=== PATIENT | male | born 1940 | race Caucasian/White ===

== ENCOUNTER 2018-05-16 06:15 | Inpatient (IN) ==
[~2018-05-16 06:15] MED LIST: Vancomycin 1,000 MG, Sodium Chloride IRRigation 1,000 ML IR ONE
[2018-05-16] MEDS ORDERED: CeFAZolin Syr 2,000MG/20 ML 2,000 MG/20 ML SYRINGE IVPB ONE (06:36)
[2018-05-16] MEDS ORDERED: Heparin 1,000 UNITS/500 mL 500 ML ONE (07:00)
--- NOTE | 2018-05-16 07:05 | Anesthesia Evaluation PreOp ---
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 HX Other Medical History: Diabetes Type II, GERD Anesthesia History: No Prior Anesthetic Complications, Past Anesthesia Alcohol Use: none Drug use: none Medications and Allergies Aspirin [Ecotrin] 325 mg PO DAILY 05/16/18 [History] Benazepril HCl 5 mg PO DAILY 05/16/18 [History] Carvedilol [Coreg] 12.5 mg PO BID 05/16/18 [History] Glimepiride [Amaryl] 4 mg PO DAILY 05/16/18 [History] Pioglitazone [Actos] 45 mg PO DAILY 05/16/18 [History] Simvastatin [Zocor] 40 mg PO HS 05/16/18 [History] raNITIdine HCl [Ranitidine HCl] 300 mg PO PRN PRN 05/16/18 [History] 3 Allergy/AdvReac Type Severity Reaction Status Date / Time No Known Allergies Allergy Verified 04/24/18 16:38 - Meds/Allergy Pre-op Review Medications Reviewed: Yes Allergies Reviewed: Yes Beta Blockers on Current Med List: Yes If Beta Blockers taken, Date/Time (Last Dose taken): 05/15/2018 at 0830 Anesthesia Results - Labs Laboratory Tests 05/09/18 05/09/18 05/09/18 08:58 08:58 08:58 WBC 6.4 Hgb 13.7 Hct 41.2 Plt Count 108 L PT 12.2 H INR 1.1 APTT 35.1 Sodium 137 Potassium 4.5 BUN 28 H Creatinine 1.33 H - Imaging Additional studies: 05/07/2018 Stress Impression: Pharmacologic stress ECG is negative for ischemia at level of heart rate achieved. Gated EF = 68%. Small sized, moderate intensity, fixed apical inferior perfusion defect. A small prior infarct cannot be excluded. Perfusion imaging was negative for ischemia. Findings: Stress Note * Resting ECG demonstrated normal sinus rhythm. * No baseline arrhythmias were noted. * Pharmacologic stress ECG is negative for ischemia at level of heart rate achieved. * No arrhythmias were noted during stress. * Patient had no chest pain during stress. Hemodynamic responses * Normal hemodynamic responses to pharmacologic stress. Study Quality * Study quality is average. Gated EF % * Gated EF = 68%. Left Ventricle * The left ventricle is not dilated. LVEDV = 91 mL. Inferior Perfusion Rest * The apical inferior segments show a moderate reduction in perfusion. Inferior Perfusion Stress * The apical inferior segments show a moderate reduction in perfusion. TID * No evidence of transient ischemic dilatation. TID ratio = 1.09. Lung Uptake * There is no evidence of increase lung uptake. Anesthesia Exam O2 Sat Height 1.78 m Height 1.78 m Height 1.78 m Weight 70.307 kg Weight 70.307 kg Weight 70.307 kg O2 Sat by Pulse Oximetry 98 Vital Signs Temp Pulse Resp BP Pulse Ox 97.6 F 51 18 139/74 98 05/16/18 06:33 05/16/18 06:33 05/16/18 06:33 05/16/18 06:33 05/16/18 06:33 Blood Glucose* 126 Height: 5'10" Weight: 155 lbs NPO (# of Hours): 8 Pain Scale: 0 Pain Scale Used: Numeric (1 - 10) - HEENT Pupil (Motor): EOMI Mallampati: II Teeth: Normal, Missing Denture Type: Upper: Complete Oral Opening: Greater than 3 - SHAFT MECHANIC LOC: Oriented SHAFT MECHANIC Motor: Normal RUE, Normal LUE, Normal RLE, Normal LLE, Normal Face SHAFT MECHANIC Sensory: Normal: RUE, LUE, RLE, LLE, Face - Cardiac Rhythm: Regular Murmur: None - Pulmonary Breath Sounds: bilateral Clear Respiratory Effort: Symmetrical Anesthesia Assess/Plan ASA Score: 3 Modified Romie Scale for Level of Consciousness: Cooperative, oriented, and tranquil Anesthetic Plan: General Monitoring Plan: Standard Monitors, A-Line Recovery Plan: PACU
[2018-05-16] MEDS ORDERED: Lidocaine -MPF 2% 2 ML VIAL ONE (07:10)
[2018-05-16] MEDS ORDERED: Dexamethasone 4 MG/ML VIAL ONE (07:10)
[2018-05-16] MEDS ORDERED: *HR* Succinylcholine 200 MG/10 ML VIAL IVP ONE (07:10)
[2018-05-16] MEDS ORDERED: Ondansetron 4 MG/2 ML VIAL ONE (07:10)
[2018-05-16] MEDS ORDERED: Lidocaine -MPF 4% 5 ML AMPUL ONE (07:10)
[2018-05-16] MEDS ORDERED: *HR* FentaNYL (PF) 100 MCG/2 ML VIAL ONE (07:11)
[2018-05-16] MEDS ORDERED: *HR* Propofol 200 MG/20 ML VIAL IVP ONE (07:11)
[2018-05-16] MEDS ORDERED: *HR* Remifentanil 1 MG VIAL IVP ONE (07:16)
[2018-05-16] MEDS ORDERED: Heparin 1,000 UNITS/500 mL 1,500 ML ONE ×2 (07:22→08:02)
[2018-05-16] MEDS ORDERED: Isovue-300 150 ML INFUS..BTL IV ONE (07:23)
--- NOTE | 2018-05-16 07:32 | History & Physical Report ---
Date of Encounter: 05/16/18 Time of Encounter: 07:28 24 Hour HP Update - Instructions Instructions: If the History and Physical is less than 30 days old and was completed prior to A.M. admission and or procedure and has NOT been updated on calendar day of procedure please complete this update prior to performing procedure. - Update Patient reports changes in Medical Condition: No Changes in examination, assessment, or condition: No Changes in Medication: No Preop tests/diagnostics Reviewed: Yes Surgery Remains Indicated: Yes Consent for Planned Operative Procedure(s) Verified: Yes - Pre-Operative Checklist Preoperative Checklist Indicated: Yes Prophylactic Antibiotic Ordered: Yes (Vancomycin due to MRSA risk) Home Medications Include Beta Susan: Yes Beta Susan Taken Today (Day of Surgery): Yes Beta Susan Taken Yesterday (Day Prior to Surgery): Yes Is VTE Prophylaxis Indicated?: Yes
[2018-05-16] MEDS: Ringers Solution, Lactated 1,000 ML IVC SCH ×2 (07:33→09:45)
[2018-05-16] MEDS ORDERED: Vancomycin 1,000 MG VIAL ONE (07:54)
[2018-05-16] MEDS ORDERED: Isovue-300 50 ML VIAL IVP ONE (08:12)
[2018-05-16] MEDS ORDERED: EPHEDrine 50 MG/ML VIAL ONE (08:42)
[2018-05-16] MEDS ORDERED: *HR* Heparin 5,000 UNIT/ML VIAL ONE ×2 (09:20→10:20)
[2018-05-16] MEDS ORDERED: *HR* Meperidine 25 MG/ML SYRINGE IVP PRN (09:55)
[2018-05-16] MEDS ORDERED: Ondansetron 4 MG/2 ML VIAL IVP ONE (09:55)
[2018-05-16] MEDS ORDERED: *HR* Promethazine 25 MG/ML VIAL IVP PRN (09:55)
[2018-05-16] MEDS ORDERED: *HR* OxyCODONE Immed Rel 5 MG TABLET PO PRN (09:55)
[2018-05-16] MEDS ORDERED: *HR* Phenylephrine 10 MG/ML VIAL ONE (10:05)
[2018-05-16] MEDS ORDERED: *HR* PHENYLEPHRINE 1,000 MCG/10 ML SYRINGE IVP ONE (10:05)
[2018-05-16] MEDS ORDERED: Protamine Sulfate 50 MG/5 ML VIAL IVP ONE (10:08)
--- NOTE | 2018-05-16 12:19 | Anesthesia Evaluation Post Op ---
Date of Encounter: 05/16/18 Time of Encounter: 12:18 - Vital Signs Vital Signs: Vital Signs/O2 Sat, Most Current Temp Pulse Resp BP Pulse Ox 97.2 F L 60 15 128/72 100 05/16/18 12:10 05/16/18 12:10 05/16/18 12:10 05/16/18 12:10 05/16/18 12:10 - Lungs Lungs: Clear Ascult./Percussion - Airway Airway: Non-obstructed - Cardiovascular Regular Rate - Mental Status Mental Status: Alert & Oriented, Answers Appropriately - Pain Pain Scale: 2 Pain Scale used: Numeric (1 - 10) - Nausea Vomiting Nausea Vomiting: Not Present - Hydration Hydration: Ice chips, Da Silva catheter - Discharge PostOp Status: Transfer Patient to floor
--- NOTE | 2018-05-16 12:23 | Operative Note ---
Date of procedure: 05/16/18 Pre-op diagnosis: Abdominal Aortic Aneursym Post-op diagnosis: same Procedure: Endograft repair of abdominal aortic aneurysm. Complications: None Anesthesia: GETA Surgeon: Ric Alvarez Was there an assistant food service manager present: No Estimated blood loss (cc): 200 Specimen: None Condition: stable Disposition: PACU
[2018-05-16] MEDS ORDERED: Dextrose Gel 15 GM/37.5 ML TUBE PO PRN ×2 (12:50)
[2018-05-16] MEDS ORDERED: 0.9 % Sodium Chloride 1,000 ML IVC SCH (12:50)
[2018-05-16] MEDS ORDERED: Ondansetron 4 MG/2 ML VIAL IVP PRN (12:50)
[2018-05-16] MEDS ORDERED: D5% in Water 1,000 ML IVC PRN (12:50)
[2018-05-16] MEDS ORDERED: Famotidine 20 MG TABLET PO PRN (12:50)
[2018-05-16] MEDS ORDERED: Naloxone 0.4 MG/ML INJ IVP PRN (12:50)
[2018-05-16] MEDS ORDERED: *HR* Dextrose 50 % in Water (Syg) 50 ML SYRINGE IVP PRN (12:50)
[2018-05-16] MEDS ORDERED: *HR* Labetalol 20 MG/4 ML SYRINGE IVP PRN (12:50)
[2018-05-16] MEDS ORDERED: OXYCODONE Oral CONC 10 MG/0.5 ML ORAL.SYG SL PRN ×2 (12:50)
[2018-05-16] MEDS ORDERED: *HR* HYDROcodone/Acet 5/325 mg TABLET PO PRN (12:50)
[2018-05-16] MEDS ORDERED: Acetaminophen 325 MG TABLET PO PRN (12:50)
[2018-05-16] MEDS: *HR* OxyCODONE Immed Rel 5 MG TABLET PO PRN (13:29)
[2018-05-16] MEDS: Insulin LISPRO 300 UNITS/3 ML VIAL SQ SCH (17:09)
[2018-05-16] MEDS: *HR* Metoprolol 5 MG/5 ML VIAL IVP SCH ×2 (17:10→23:52)
[2018-05-16] MEDS ORDERED: Insulin LISPRO 300 UNITS/3 ML VIAL SQ SCH (21:00)
[2018-05-17 04:43] LABS: Basophils % 0.1 %; Immature Granulocytes % 0.4 % (0-4)
[2018-05-17 04:46] LABS: Hematocrit 32.4 % (37.5-50.1); Hemoglobin 10.9 g/dL (12.9-16.9); Lymphocytes % 27.1 %; Mean Corpuscular HGB Conc 33.6 g/dL (31.6-35.5); Mean Corpuscular Volume 104.2 fL (83.0-100.0); Mean Platelet Volume 10.1 fL (9.4-12.4); Monocytes # 0.9 K/mcL (0.0-1.3); Monocytes % 7.9 %; Neutrophils # 7.1 K/mcL (1.6-8.9); Red Blood Count 3.11 M/mcL (4.19-5.50); Red Cell Distribution Width 13.2 % (11.5-14.5); Segmented Neutrophils % 64.5 %
[2018-05-17 04:50] LABS: Platelet Count 84 K/mcL (140-400)
[2018-05-17 05:13] LABS: BUN/Creatinine Ratio 26 (6-26); Blood Urea Nitrogen 25 mg/dL (8-23); Calcium 8.3 mg/dL (8.6-10.3); Carbon Dioxide 21 mEq/L (23-29); Chloride 109 mEq/L (98-107); Glucose 144 mg/dL (70-105); Osmolality,Calculated 293 (280-300); Potassium 4.3 mEq/L (3.5-5.1); Sodium 138 mEq/L (136-145); eGFR For Non-African Americans > 60 (> 60)
[2018-05-17] MEDS: *HR* Metoprolol 5 MG/5 ML VIAL IVP SCH (05:49)
[2018-05-17] MEDS ORDERED: *HR* Heparin 5,000 UNIT/ML VIAL SQ SCH ×2 (06:00)
--- NOTE | 2018-05-17 06:22 | Discharge Summary ---
Orders not resulted at time of discharge: Pending orders 05/15/18 10:58 Red Blood Cells [BBK] Routine Date of Encounter: 05/17/18 Time of Encounter: 07:35 - Discharge Diagnosis (1) Abdominal aortic aneurysm Priority: Primary Status: Chronic Comments: The patient is postoperative day #1 after endograft repair of an abdominal aortic aneurysm. His wounds are healing. He is alert. He is tolerating a diet. He will be discharged today. 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 transplanted heart: [place] heart Associated angina: without angina Qualified Code(s): I25.10 - Atherosclerotic heart disease of [place] coronary artery without angina pectoris (5) Mixed hyperlipidemia Priority: Secondary Status: Chronic (6) Anemia Priority: Secondary Status: Acute Comments: The patient has acute expected postoperative blood loss anemia. He is hemodynamically stable without evidence of ongoing blood loss. Qualifiers: Anemia type: other cause Other causes of anemia: other cause, not classified Qualified Code(s): D64.89 - Other specified anemias - Hospital Course Hospital course: Mr. Kaur is a 78 year old male with a history of coronary artery disease, diabetes, hypertension and carotid stenosis was found have an abdominal aortic aneurysm. He was admitted on 05/16/2018 where he underwent endograft repair of his abdominal aortic aneurysm. He tolerated the procedure well. On postoperative day #1 he was tolerating a diet. His pain was controlled. He was hemodynamically stable. He was discharged home in stable condition on postoperative day #1 without complication. - Time Spent with Patient Total time spent providing and/or coordinating discharge services: - Discharge Medications Prescriptions: OxyCODONE/APAP 5/325 [Percocet 5/325 MG] 1 each PO Q6HR PRN 5 Days #20 tablet PRN Reason: Postoperative pain Home Medications: Aspirin [Ecotrin] 325 mg PO DAILY 05/16/18 [History] Benazepril HCl 5 mg PO DAILY 05/16/18 [History] Carvedilol [Coreg] 12.5 mg PO BID 05/16/18 [History] Glimepiride [Amaryl] 4 mg PO DAILY 05/16/18 [History] Pioglitazone [Actos] 45 mg PO DAILY 05/16/18 [History] Simvastatin [Zocor] 40 mg PO HS 05/16/18 [History] raNITIdine HCl [Ranitidine HCl] 300 mg PO PRN PRN 05/16/18 [History] OxyCODONE/APAP 5/325 [Percocet 5/325 MG] 1 each PO Q6HR PRN 5 Days #20 tablet [Rx] Allergies/Adverse Reactions: 3 Allergy/AdvReac Type Severity Reaction Status Date / Time No Known Allergies Allergy Verified 04/24/18 16:38 Date of admission: 05/16/18 12:26 Primary care physician: Yovanny Daniel MD Procedure(s) Performed: Endograft repair of abdominal aortic aneurysm. Discharging clinician: Ric Alvarez Anticipated date of discharge: 05/17/18 Exam Vital Signs, Last 4 Hours Temp Pulse Resp BP Pulse Ox 05/17/18 03:33 97.7 F 68 16 115/65 96 General: Present: Conversant, No Apparent Distress HEENT: Present: Pupils equal Cardiac: Present: Reg Rate and Rhythm Lungs: Present: Normal Breath Sounds Neuro: Present: Alert and responsive, No focal deficits noted Abdomen: Present: Soft, Non-tender Vascular: Present: Normal capillary refill, Pulse, normal, Surgical incisions ( Incisions clean and dry and intact without erythema or drainage, no hematoma). Absent: Edema Skin: Present: No rashes noted on visualized skin - Patient Status Disposition: Home, Self-Care Condition: Good Functional capacity at discharge: independent ambulation Overall status at discharge: patient is back to baseline - Discharge Instructions Instructions: Oxycodone/Acetaminophen (By mouth), Abdominal Aortic Aneurysm (DC ), Endovascular Abdominal Aortic Aneurysm Repair (DC) Follow Up With: Ric Alvarez MD [Partnered Physician] - 06/25/18 1:10 pm Yovanny Daniel MD [Primary Care Provider] - 05/23/18 11:30 am Additional Instructions: May remove bandages and shower on 05/18/2018. Wash wounds gently and pat to dry. Applied dry gauze to wounds daily for 7 days. No tub baths or swimming until 06/20/2018. Call Dr. Alvarez at [phone] with questions or concerns. - Diet and Activity Activity: increase activity as tolerated Diet: advance to your usual diet - VTE Documentation of Mechanical Device: Intermittent pneumatic compression device
[2018-05-17 07:08] VITALS: BP 115/66
[2018-05-17] MEDS: Insulin LISPRO 300 UNITS/3 ML VIAL SQ SCH (07:53)
[2018-05-17] MEDS: *HR* OxyCODONE Immed Rel 5 MG TABLET PO PRN (08:46)
[2018-05-17] MEDS ORDERED: Aspirin Enteric Coated 325 MG Tablet PO SCH (09:00)
== END 2018-05-17 10:20 | disposition home or self-care (01) | DRG 269 ==
LOC: SAMDAY 06:15 → 2NNU 12:26
PROVIDERS: ADMIT Surgery; ATTEND Surgery